=== PATIENT | female | born 1980 | race Caucasian/White ===

== ENCOUNTER 2017-02-16 08:15 | Emergency (ER) | payer OTHER ==
[2017-02-16 08:23] VITALS: BP 167/109; TEMP 97.5; BMI 46.3
[2017-02-16] MEDS ORDERED: TORADOL IM STA (08:23)
[2017-02-16] MEDS ORDERED: MORPHINE 4 MG/ML SYRINGE IM STA (08:23)
[2017-02-16] MEDS ORDERED: NORFLEX IM STA (08:23)
[2017-02-16] MEDS ORDERED: ZOFRAN 4 MG/2 ML IM STA (08:23)
[2017-02-16] MEDS ORDERED: DECADRON 4 MG/ML SDV IM STA (08:24)
[2017-02-16 09:10] LABS: SERUM PREGNANCY INTERNAL QC INTERNAL QC VALID
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
--- NOTE | 2017-02-16 10:32 | DI ---
Examination: Five radiographic images of the lumbar spine. Comparison: 05/07/2010. Reason for study: Pain. FINDINGS: No acute fracture or listhesis. The vertebral bodies intervertebral body disc space heig hts are relatively well maintained. No obvious osseous foraminal narrowing. There is maintenance o f the lumbar lordotic curve. Impression: 1. No acute fracture or listhesis in the lumbar spine. 2. If clinical suspicion is high for an osseous injury, a CT scan may be performed.
== END 2017-02-16 10:48 | disposition home or self-care (01) ==
LOC: ED 08:15
DX: M54.5 Low back pain (principal)
CPT/HCPCS: 36415; 84703; 96372; 99283

== ENCOUNTER 2017-11-25 18:29 | Emergency (ER) ==
[2017-11-25 18:34] VITALS: BP 136/90; TEMP 98.3; BMI 52.2
[2017-11-25] MEDS ORDERED: MOTRIN PO STA (19:14)
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
--- NOTE | 2017-11-25 19:49 | DI ---
EXAM: Three views of the right hand HISTORY: Hand pain injury COMPARISON: None available FINDINGS: No fracture or dislocation is identified. The joint spaces are maintained. IMPRESSION: No acute osseous abnormality.
--- NOTE | 2017-11-25 19:50 | DI ---
EXAM: Three views of the right wrist HISTORY: Wrist pain, no known injury COMPARISON: None available FINDINGS: No fracture or dislocation is identified. The joint spaces are maintained. IMPRESSION: No acute osseous abnormality.
== END 2017-11-25 19:59 | disposition home or self-care (01) ==
LOC: ED 18:29
DX: S63.501A Unspecified sprain of right wrist, initial encounter (principal); X50.1XXA Overexertion from prolonged static or awkward postures, initial encounter
CPT/HCPCS: 99282